=== PATIENT | female | born 1975 | race Caucasian/White ===

== ENCOUNTER 2018-01-10 19:56 | Emergency (ER) | payer OTHER ==
[~2018-01-10] VITALS: Ht 175.3 cm; Wt 80.0 kg
[~2018-01-10 19:56] MED LIST: DICL75TA PO; HYDR-3533 PO; OMEP20TA93 PO; SYNT175T PO
[2018-01-10 21:05] VITALS: BP 108/68; PULSE 83; RESP 16; TEMP 98.3; O2SAT 99
--- NOTE | 2018-01-10 21:49 | RADRPT ---
EXAM DATE/TIME: 01/10/2018 21:32 [place] COMPARISON: No previous studies available for comparison. INDICATIONS : Pain from pressure exerted downward on foot. MEDICAL HISTORY : None. SURGICAL HISTORY : None. ENCOUNTER: Initial ACUITY: 1 day PAIN SCORE: 5/10 LOCATION: Right foot, midline. FINDINGS: Three view examination of the right foot demonstrates no soft tissue swelling, dislocation, or fractu re. The tarsal bones appear intact. The interphalangeal and metatarsophalangeal joints are intact. The calcaneus is intact. Bony mineralization is normal. There is moderate hallux valgus. Mild degenerative changes are seen at the first metatarsophalangeal joint and sesamoids. CONCLUSION: Intact right foot. Hallux valgus with associated mild degenerative changes. Sterling Funk MD on January 10, 2018 at 21:46 Board Certified Radiologist. This report was verified electronically.
--- NOTE | 2018-01-10 22:55 | PD ---
HPI Chief Complaint: Injury Time Seen by Provider: 22:52 Travel History International Travel<30 days: No Contact w/Intl Traveler<30days: No Traveled to known affect area: No History of Present Illness HPI 42-year-old female here for evaluation of right foot pain. 6 hours ago she reports that she was pushing on a ryan with the right foot which felt a sharp pain in the right forefoot. Pain is worse when walking. Denies any other injuries and she has no other complaints. PFSH Past Medical History Cancer: Yes (THYROID) Diabetes: No Diminished Hearing: No GERD: Yes Hepatitis: No Hiatal Hernia: No Medical other: Yes (GERD, ARTHRITIS WRISTS) Migraines: Yes Thyroid Disease: Yes Tetanus Vaccination: < 5 Years ?: Not Tubal Ligation: Yes Past Surgical History Gynecologic Surgery: Yes (TUBAL LIG., UTERINE ABLATION) Hysterectomy: Yes Other Surgery: Yes (THYROIDECTOMY) Social History Alcohol Use: Yes (SOCIALLY) Tobacco Use: Yes (1/2 PPD) Substance Use: No Allergies-Medications (Allergen,Severity, Reaction): Coded Allergies: acebutolol (Unverified Allergy, Severe, BRONCHOSPASM, 01/10/18) amoxicillin (Unverified Allergy, Severe, HIVES, DYSPNEA, 01/10/18) atenolol (Unverified Allergy, Severe, BRONCHOSPASM, 01/10/18) betaxolol (Unverified Allergy, Severe, BRONCHOSPASM, 01/10/18) carvedilol (Unverified Allergy, Severe, BRONCHOSPASM, 01/10/18) cephalexin (Unverified Allergy, Severe, HIVES, DYSPNEA, 01/10/18) erythromycin base (Unverified Allergy, Severe, DYSPNEA, HIVES, 01/10/18) gabapentin (Unverified Allergy, Severe, BRONCHOSPASM, 01/10/18) labetalol (Unverified Allergy, Severe, BRONCHOSPASM, 01/10/18) metoprolol (Unverified Allergy, Severe, BRONCHOSPASM, 01/10/18) nebivolol (Unverified Allergy, Severe, BRONCHOSPASM, 01/10/18) penicillin G (Unverified Allergy, Severe, HIVES, DYSPNEA, 01/10/18) pindolol (Unverified Allergy, Severe, BRONCHOSPASM, 01/10/18) propranolol (Unverified Allergy, Severe, BRONCHOSPASM, 01/10/18) sotalol (Unverified Allergy, Severe, BRONCHOSPASM, 01/10/18) timolol (Unverified Allergy, Severe, BRONCHOSPASM, 01/10/18) Reported Meds & Prescriptions Reported Meds & Active Scripts Active Diclofenac Sodium DR (Diclofenac Sodium) 75 Mg Tabdr 75 Mg PO Q8HR PRN Lortab (Hydrocodone-Acetaminophen) 5-325 Mg Tab 1 Tab PO Q6H PRN Reported Omeprazole 20 Mg Tab 20 Mg PO DAILY Synthroid (Levothyroxine Sodium) 175 Mcg Tab 175 Mcg PO DAILY Review of Systems Musculoskeletal: Positive: Pain, No: Limited ROM Skin: Positive Other (Denies open wounds) Neurologic: No: Paresthesia Physical Exam Narrative GENERAL: Well-developed well-nourished female no acute distress SKIN: Warm and dry. No open wounds, no bruising or soft tissue swelling CARDIOVASCULAR: Regular rate and rhythm. No murmur appreciated. RESPIRATORY: No accessory muscle use. Clear to auscultation. Breath sounds equal bilaterally. MUSCULOSKELETAL: No obvious deformities. Tenderness to palpation of the right forefoot. The patient maintains full range of motion of the right foot, ankle. 2+ dorsalis pedis pulse. NEUROLOGICAL: Awake and alert. No obvious cranial nerve deficits. Motor grossly within normal limits. Normal speech. Data Data Last Documented VS Vital Signs Date Time Temp Pulse Resp B/P (MAP) Pulse Ox O2 Delivery O2 Flow Rate FiO2 01/10/18 21:05 98.3 83 16 108/68 (81) 99 Room Air Orders Orders Ice/Cold Pack (01/10/18 21:14) Foot, Complete ([id number]) (01/10/18 21:14) Ed Discharge Order (01/10/18 22:52) [facility] Medical Decision Making Medical Screen Exam Complete: Yes Emergency Medical Condition: Yes Medical Record Reviewed: Yes Differential Diagnosis Right foot strain, sprain, contusion, fracture Narrative Course X-ray imaging reveals CONCLUSION: Intact right foot. Hallux valgus with associated mild degenerative changes. The patient has no fracture. She appears to have a strain in her right foot. She is declining crutches. She is stable for discharge. Diagnosis Primary Impression: Right foot strain Additional Instructions: Ice area several times a day 15 minutes at a time. Rest. Follow-up with primary care physician as needed. Med/Other Pt SpecificInfo: No Change to Meds Disposition: 01 DISCHARGE HOME Condition: Stable Keith Cole Jan 10, 2018 22:55
== END 2018-01-10 23:42 | disposition home or self-care (01) ==
LOC: NEPD 19:56
DX: S96.911A Strain of unspecified muscle and tendon at ankle and foot level, right foot, initial encounter (principal); F17.200 Nicotine dependence, unspecified, uncomplicated; E07.9 Disorder of thyroid, unspecified; K21.9 Gastro-esophageal reflux disease without esophagitis; X50.9XXA Other and unspecified overexertion or strenuous movements or postures, initial encounter; Y93.89 Activity, other specified
CPT/HCPCS: 73630; 99283

== ENCOUNTER 2018-01-30 13:51 | Emergency (ER) | payer OTHER ==
[2018-01-30 14:22] VITALS: BP 144/90; PULSE 92; RESP 16; TEMP 98; O2SAT 99
[2018-01-30] MEDS ORDERED: MEDR4PAK PO (16:11)
--- NOTE | 2018-01-30 16:11 | PD ---
HPI Chief Complaint: Pain: Acute or Chronic Time Seen by Provider: 15:58 Travel History International Travel<30 days: No Contact w/Intl Traveler<30days: No Traveled to known affect area: No History of Present Illness HPI 42-year-old female presents to the emergency department with 2 complaints. Her first complaint is continued right foot pain. Denies injury. Says she was seen here on January 10 for the same complaint but says her pain is not getting better. Has not followed up with primary care or podiatry. Denies paresthesias , loss of sensation, decreased range of motion, decreased strength to the affected extremity. Worse with ambulation. Better at rest. Her second complaint is left shoulder pain since January 03 after she injured it changing a beer keg. She was seen at [facility] walk-in clinic and had an x-ray done. They told her she had a rotator cuff injury. She has not followed up with primary care or orthopedics. Pain is worse with movement. Better at rest. Rates pain 8/10. Has been taking ibuprofen and Tylenol for symptom management. Primary care provider is Dr. Stewart. Allergies as listed on the chart. History of hypothyroidism, migraine headaches, GERD. Has no other medical complaints. No other modifying factors or associated signs and symptoms. PFSH Past Medical History Cancer: Yes (THYROID) Diabetes: No Diminished Hearing: No GERD: Yes Hepatitis: No Hiatal Hernia: No Migraines: Yes Thyroid Disease: Yes Tubal Ligation: Yes Past Surgical History Gynecologic Surgery: Yes (TUBAL LIG., UTERINE ABLATION) Hysterectomy: Yes Other Surgery: Yes (THYROIDECTOMY) Social History Alcohol Use: Yes (SOCIALLY) Tobacco Use: Yes (1/2 PPD) Substance Use: No Allergies-Medications (Allergen,Severity, Reaction): Coded Allergies: acebutolol (Unverified Allergy, Severe, BRONCHOSPASM, 01/10/18) amoxicillin (Unverified Allergy, Severe, HIVES, DYSPNEA, 01/10/18) atenolol (Unverified Allergy, Severe, BRONCHOSPASM, 01/10/18) betaxolol (Unverified Allergy, Severe, BRONCHOSPASM, 01/10/18) carvedilol (Unverified Allergy, Severe, BRONCHOSPASM, 01/10/18) cephalexin (Unverified Allergy, Severe, HIVES, DYSPNEA, 01/10/18) erythromycin base (Unverified Allergy, Severe, DYSPNEA, HIVES, 01/10/18) gabapentin (Unverified Allergy, Severe, BRONCHOSPASM, 01/10/18) labetalol (Unverified Allergy, Severe, BRONCHOSPASM, 01/10/18) metoprolol (Unverified Allergy, Severe, BRONCHOSPASM, 01/10/18) nebivolol (Unverified Allergy, Severe, BRONCHOSPASM, 01/10/18) penicillin G (Unverified Allergy, Severe, HIVES, DYSPNEA, 01/10/18) pindolol (Unverified Allergy, Severe, BRONCHOSPASM, 01/10/18) propranolol (Unverified Allergy, Severe, BRONCHOSPASM, 01/10/18) sotalol (Unverified Allergy, Severe, BRONCHOSPASM, 01/10/18) timolol (Unverified Allergy, Severe, BRONCHOSPASM, 01/10/18) Reported Meds & Prescriptions Reported Meds & Active Scripts Active Medrol Dosepak (Methylprednisolone) 4 Mg Dspk 4 Mg PO DIRECTED Per Pharmacist direction Reported Omeprazole 20 Mg Tab 20 Mg PO DAILY Synthroid (Levothyroxine Sodium) 175 Mcg Tab 175 Mcg PO DAILY Review of Systems Except as stated in HPI: all other systems reviewed are Neg Physical Exam Narrative GENERAL: Well-nourished, well-developed female patient, in no acute distress SKIN: Warm and dry. HEAD: Atraumatic. Normocephalic. EYES: Pupils equal and round. No scleral icterus. No injection or drainage. ENT: Mucosa pink and moist. Airway patent. NECK: Supple. Trachea midline. CARDIOVASCULAR: Regular rate . RESPIRATORY: No accessory muscle use. GASTROINTESTINAL: Flat. MUSCULOSKELETAL: No obvious deformities. No clubbing. No cyanosis. No edema. Left shoulder with limited range of motion; with approximately 90 abduction; left shoulder with no obvious deformities; without erythema, edema, ecchymosis; tenderness on palpation to the lateral aspect. left upper extremity is supple and nontender with 2+ radial pulse and sensory intact and without erythema or edema; chief writer strength equal bilaterally.. 5/5 strength. Right upper extremity supple and non-tense. Right foot without erythema, edema, ecchymosis; tenderness on palpation to the first metatarsal joint. Right lower extremity is supple and nontender with 2+ pedal pulse and sensory intact and without erythema or edema. NEUROLOGICAL: Awake and alert. Oriented 3. No obvious cranial nerve deficits. Motor grossly within normal limits. Normal speech. PSYCHIATRIC: Appropriate mood and affect; insight and judgment normal. Data Data Last Documented VS Vital Signs Date Time Temp Pulse Resp B/P (MAP) Pulse Ox O2 Delivery O2 Flow Rate FiO2 01/30/18 14:22 98.0 92 16 144/90 (108) 99 Orders Orders Ed Discharge Order (01/30/18 16:11) MDM Medical Decision Making Medical Screen Exam Complete: Yes Emergency Medical Condition: Yes Medical Record Reviewed: Yes Differential Diagnosis Arthritis, gout, foot sprain, plantar fasciitis, foot pain, shoulder pain, rotator cuff tear, shoulder strain; less likely shoulder fracture or dislocation Narrative Course 42-year-old female with continued right foot pain and complaint of left shoulder pain. Patient was evaluated in urgent care on January 03 and had left shoulder x-rayed and was told rotator cuff injury, per the patient. She was evaluated here on January 10 and had right foot x-ray which concluded: Intact right foot. Hallux valgus with associated mild degenerative changes. Patient was given a copy of the x-ray report. Instructed patient to follow-up with orthopedics and podiatry. I offered the patient crutches for support and she declined. Medrol Dosepak prescribed for home. Instructed patient to follow up with primary care provider. Patient verbalizes understanding and agreement with treatment plan. Patient is medically cleared and stable for discharge. Discussed reasons to return to the emergency department. Patient agrees with treatment plan. The patients vital signs are stable and the patient is stable for outpatient follow-up and treatment. Patient discharged home, stable and in no acute distress. Diagnosis Primary Impression: Left shoulder pain Qualified Codes: M25.512 - Pain in left shoulder Additional Impression: Right foot pain Referrals: [facility] Orthopaedic Surgeon Portable Machine Cutter Primary Care Physician Patient Instructions: General Instructions, Shoulder Pain (ED) Additional Instructions: Tylenol or ibuprofen as directed and as needed for pain Avoid the use of flat shoes and barefoot walking Use heel shoe inserts or arch supports and/or heel cups as needed Decrease physical activity that causes aggravation of pain Avoid aggravating activity; increase activity as tolerated Cane as needed for support with walking Follow-up with podiatry Follow-up with orthopedics Follow-up with primary care Return to the emergency department immediately with worsening of symptoms Med/Other Pt SpecificInfo: Prescription(s) given Scripts Methylprednisolone Dosepak (Medrol Dosepak) 4 Mg Dspk 4 MG PO DIRECTED, #1 DSPK 0 Refills Per Pharmacist direction Prov: Lucy Bertrand 01/30/18 Disposition: 01 DISCHARGE HOME Condition: Stable Lucy Bertrand Jan 30, 2018 16:11
== END 2018-01-30 16:16 | disposition home or self-care (01) ==
LOC: NEPK 13:51
DX: M25.512 Pain in left shoulder (principal); M79.671 Pain in right foot; E03.9 Hypothyroidism, unspecified; K21.9 Gastro-esophageal reflux disease without esophagitis; F17.200 Nicotine dependence, unspecified, uncomplicated; Z85.850 Personal history of malignant neoplasm of thyroid
CPT/HCPCS: 99283

== ENCOUNTER 2018-03-25 17:45 | Emergency (ER) | payer SELFPAY ==
[~2018-03-25] VITALS: Ht 175.3 cm; Wt 85.0 kg
[~2018-03-25 17:45] MED LIST changes: -DICL75TA PO; -HYDR-3533 PO; +MEDR4PAK PO
[2018-03-25 18:42] VITALS: BP 145/82; PULSE 77; RESP 18; TEMP 98.4; O2SAT 100
--- NOTE | 2018-03-25 19:14 | PD ---
HPI Chief Complaint: abdominal pain Time Seen by Provider: 18:58 Travel History International Travel<30 days: No Contact w/Intl Traveler<30days: No Traveled to known affect area: No History of Present Illness HPI 42yo F with PMH of chronic back pain, migraine headaches, endometriosis s/p hysterectomy, pancreatitis presents to the ED with c/o right upper abdominal pain for 4 hours. Said pain is radiating to the right scapula. Leaning on left side seemed to help. Associated with nausea. Pain is achy and constant. Moderate severity. Denies any fever, chest pain, sob, vomiting, dysuria, hematuria, vaginal bleeding, discharge, focal weakness or numbness. Pt just started pain management and had lower back injection of steroids today. Denies any trauma. PFSH Past Medical History Cancer: Yes (THYROID) Diabetes: No Diminished Hearing: No GERD: Yes Hepatitis: No Hiatal Hernia: No Migraines: Yes Thyroid Disease: Yes Tubal Ligation: Yes Past Surgical History Gynecologic Surgery: Yes (TUBAL LIG., UTERINE ABLATION) Hysterectomy: Yes Other Surgery: Yes (THYROIDECTOMY) Social History Alcohol Use: Yes (SOCIALLY) Tobacco Use: Yes (1/2 PPD) Substance Use: No Allergies-Medications (Allergen,Severity, Reaction): Coded Allergies: acebutolol (Unverified Allergy, Severe, BRONCHOSPASM, 03/25/18) amoxicillin (Unverified Allergy, Severe, HIVES, DYSPNEA, 03/25/18) atenolol (Unverified Allergy, Severe, BRONCHOSPASM, 03/25/18) betaxolol (Unverified Allergy, Severe, BRONCHOSPASM, 03/25/18) carvedilol (Unverified Allergy, Severe, BRONCHOSPASM, 03/25/18) cephalexin (Unverified Allergy, Severe, HIVES, DYSPNEA, 03/25/18) erythromycin base (Unverified Allergy, Severe, DYSPNEA, HIVES, 03/25/18) gabapentin (Unverified Allergy, Severe, BRONCHOSPASM, 03/25/18) labetalol (Unverified Allergy, Severe, BRONCHOSPASM, 03/25/18) metoprolol (Unverified Allergy, Severe, BRONCHOSPASM, 03/25/18) nebivolol (Unverified Allergy, Severe, BRONCHOSPASM, 03/25/18) penicillin G (Unverified Allergy, Severe, HIVES, DYSPNEA, 03/25/18) pindolol (Unverified Allergy, Severe, BRONCHOSPASM, 03/25/18) propranolol (Unverified Allergy, Severe, BRONCHOSPASM, 03/25/18) sotalol (Unverified Allergy, Severe, BRONCHOSPASM, 03/25/18) timolol (Unverified Allergy, Severe, BRONCHOSPASM, 03/25/18) Reported Meds & Prescriptions Reported Meds & Active Scripts Active Medrol Dosepak (Methylprednisolone) 4 Mg Dspk 4 Mg PO DIRECTED Per Pharmacist direction Reported Omeprazole 20 Mg Tab 20 Mg PO DAILY Synthroid (Levothyroxine Sodium) 175 Mcg Tab 175 Mcg PO DAILY Review of Systems Except as stated in HPI: all other systems reviewed are Neg Physical Exam Narrative GENERAL: 42yo F in mild distress. SKIN: Focused skin assessment warm/dry. HEAD: Atraumatic. Normocephalic. EYES: Pupils equal and round. No scleral icterus. No injection or drainage. ENT: No nasal bleeding or discharge. Mucous membranes pink and moist. NECK: Trachea midline. No JVD. CARDIOVASCULAR: Regular rate and rhythm. No murmur appreciated. RESPIRATORY: No accessory muscle use. Clear to auscultation. Breath sounds equal bilaterally. GASTROINTESTINAL: Abdomen soft, +TTP epigastric and RUQ. No rebound tenderness or guarding. Back: +Bandaid in lower back with no ttp or swelling or bleeding. MUSCULOSKELETAL: No obvious deformities. No clubbing. No cyanosis. No edema. NEUROLOGICAL: Awake and alert. No obvious cranial nerve deficits. Motor grossly within normal limits. Normal speech. PSYCHIATRIC: Appropriate mood and affect; insight and judgment normal. Data Data Last Documented VS Vital Signs Date Time Temp Pulse Resp B/P (MAP) Pulse Ox O2 Delivery O2 Flow Rate FiO2 03/25/18 18:42 98.4 77 18 145/82 (103) 100 Orders Orders Complete Blood Count With Diff (03/25/18 19:07) Comprehensive Metabolic Panel (03/25/18 19:07) Lipase (03/25/18 19:07) Urinalysis - C+S If Indicated (03/25/18 19:07) Us Abdomen Gallbladder (03/25/18 ) Ketorolac Inj (Toradol Inj) (03/25/18 19:15) Ondansetron Odt (Zofran Odt) (03/25/18 19:15) Morphine Inj (Morphine Inj) (03/25/18 20:45) Acetaminophen (Tylenol) (03/25/18 21:15) Labs Laboratory Tests Test 03/25/18 19:10 White Blood Count 8.9 TH/MM3 Red Blood Count 4.54 MIL/MM3 Hemoglobin 13.7 GM/DL Hematocrit 41.0 % Mean Corpuscular Volume 90.2 FL Mean Corpuscular Hemoglobin 30.3 PG Mean Corpuscular Hemoglobin Concent 33.5 % Red Cell Distribution Width 13.0 % Platelet Count 247 TH/MM3 Mean Platelet Volume 10.2 FL Neutrophils (%) (Auto) 85.9 % Lymphocytes (%) (Auto) 10.2 % Monocytes (%) (Auto) 3.0 % Eosinophils (%) (Auto) 0.5 % Basophils (%) (Auto) 0.4 % Neutrophils # (Auto) 7.7 TH/MM3 Lymphocytes # (Auto) 0.9 TH/MM3 Monocytes # (Auto) 0.3 TH/MM3 Eosinophils # (Auto) 0.0 TH/MM3 Basophils # (Auto) 0.0 TH/MM3 CBC Comment DIFF FINAL Differential Comment Urine Color YELLOW Urine Turbidity CLEAR Urine pH 6.0 Urine Specific [place] 1.022 Urine Protein NEG mg/dL Urine Glucose (UA) NEG mg/dL Urine Ketones NEG mg/dL Urine Occult Blood NEG Urine Nitrite NEG Urine Bilirubin NEG Urine Urobilinogen LESS THAN 2.0 MG/DL Urine Leukocyte Esterase NEG Urine RBC LESS THAN 1 /hpf Urine Squamous Epithelial Cells 2 /hpf Urine Mucus FEW /lpf Microscopic Urinalysis Comment CULT NOT INDICATED Blood Urea Nitrogen 12 MG/DL Creatinine 0.76 MG/DL Random Glucose 86 MG/DL Total Protein 7.3 GM/DL Albumin 4.0 GM/DL Calcium Level 8.8 MG/DL Alkaline Phosphatase 88 U/L Aspartate Amino Transf (AST/SGOT) 20 U/L Alanine Aminotransferase (ALT/SGPT) 30 U/L Total Bilirubin 0.1 MG/DL Sodium Level 140 MEQ/L Potassium Level 4.2 MEQ/L Chloride Level 107 MEQ/L Carbon Dioxide Level 26.3 MEQ/L Anion Gap 7 MEQ/L Estimat Glomerular Filtration Rate 84 ML/MIN Lipase 205 U/L [facility] Medical Decision Making Medical Screen Exam Complete: Yes Emergency Medical Condition: Yes Differential Diagnosis Acute cholecystitis vs. cholelithiasis vs. pancreatitis vs. musculoskeletal pain Narrative Course 42yo F right upper abdominal pain radiating to right scapula. Labs reviewed, no leukocytosis. H/H normal. Normal liver enzymes. Normal lipase. UA negative. Pt had hysterectomy so not ordered. US gallbladder showed no evidence of gallstones or biliary tract obstruction. Increased echogenicity of the liver suggestive fo fatty infiltration or hepatocellular disease. Pt given pain and nausea medication and it has improved. She is well appearing. Return precautions given. Diagnosis Primary Impression: Abdominal pain Qualified Codes: R10.11 - Right upper quadrant pain Patient Instructions: General Instructions Departure Forms: Tests/Procedures Additional Instructions: Please follow up with your primary care physician regarding the increased echogenicity of liver seen in US which could be suggestive of fatty infiltration or hepatocellular disease. Please return to the ED if symptoms worsen. Med/Other Pt SpecificInfo: Prescription(s) given Scripts Acetaminophen (Tylenol) 325 Mg Tab 650 MG PO Q6H Y for PAIN SCALE 1 TO 4, #20 TAB 0 Refills Prov: Beata Chaudhry DO 03/25/18 Disposition: 01 DISCHARGE HOME Condition: Stable Beata Chaudhry DO March 25, 2018 19:14
[2018-03-25] MEDS ORDERED: KETOROLAC TROMETHAMINE 30 MG/ML (IVP) VIAL IV PUSH ONE (19:15)
[2018-03-25] MEDS ORDERED: ONDANSETRON ODT 4 MG TAB PO ONE (19:15)
[2018-03-25 19:47] LABS: AUTOMATED NEUTROPHIL # 7.7 TH/MM3 (1.8-7.7); BASOPHIL % 0.4 % (0.0-2.0); EOSINOPHIL % 0.5 % (0.0-4.0); HEMOGLOBIN 13.7 GM/DL (11.6-15.3); LYMPH % 10.2 % (9.0-44.0); LYMPHOCYTE # 0.9 TH/MM3 (1.0-4.8); MEAN CELL VOLUME 90.2 FL (80.0-100.0); MEAN CORPUSCULAR HEMOGLOBIN 30.3 PG (27.0-34.0); MEAN CORPUSCULAR HGB CONC 33.5 % (32.0-36.0); MEAN PLATELET VOLUME 10.2 FL (7.0-11.0); MONOCYTE # 0.3 TH/MM3 (0-0.9); NEUT % 85.9 % (16.0-70.0); PLATELET COUNT 247 TH/MM3 (150-450); RED BLOOD COUNT 4.54 MIL/MM3 (4.00-5.30); WHITE BLOOD COUNT 8.9 TH/MM3 (4.0-11.0)
[2018-03-25 20:03] LABS: AST (GOT) 20 U/L (15-37); BICARBONATE 26.3 MEQ/L (21.0-32.0); BLOOD UREA NITROGEN 12 MG/DL (7-18); CALCIUM 8.8 MG/DL (8.5-10.1); CHLORIDE 107 MEQ/L (98-107); CREATININE 0.76 MG/DL (0.50-1.00); GLOMERULAR FILTRATION RATE 84 ML/MIN (>89); GLUCOSE,RANDOM 86 MG/DL (74-106); SODIUM (NA) 140 MEQ/L (136-145)
[2018-03-25 20:06] LABS: ALKALINE PHOSPHATASE 88 U/L (45-117); ALT (GPT) 30 U/L (10-53); TOTAL BILIRUBIN ADULT 0.1 MG/DL (0.2-1.0); TOTAL PROTEIN 7.3 GM/DL (6.4-8.2)
[2018-03-25 20:09] LABS: BILIRUBIN, URINE NEG (NEG); BLOOD, URINE NEG (NEG); GLUCOSE,URINE NEG (NEG); KETONE, URINE NEG (NEG); MUCUS URINE FEW /lpf (OCC); NITRITE,URINE NEG (NEG); SQUAMOUS EPITHELIAL CELL URINE 2 /hpf (0-5); URINE COLOR YELLOW (YELLW/STRAW); URINE LEUKOCYTE ESTERASE NEG (NEG)
[2018-03-25] MEDS ORDERED: MORPHINE SULFATE 4 MG/ML INJ IV PUSH ONE (20:45)
--- NOTE | 2018-03-25 21:08 | RADRPT ---
EXAM DATE: 03/25/2018 9:01 PM EDT AGE/SEX: 42 years / Female INDICATIONS: RUQ pain. CLINICAL DATA: This is the patient's initial encounter. Patient reports that signs and/or symptoms h ave been present for 1 day and indicates a pain score of 10/10. MEDICAL/SURGICAL HISTORY: Gastroesophageal reflux disease. Thyroid cancer. UTI. Arthritis. Tubal l igation. Hysterectomy. Thyroidectomy. COMPARISON: No prior [facility] exams available for comparison MEASUREMENTS (cm x cm x cm): Liver:__ 16.1 cm length Common Bile Duct:__ 3mm FINDINGS: Liver: Coarse echotexture suggesting fatty change or diffuse hepatocellular process. No evidence of ascites. Portal Vein: Hepatopedal flow seen in portal vein. Common Duct: No intraluminal mass or stone visualized. Gallbladder: Demonstrates no wall thickening or pericholecystic fluid. No stones visualized. Pancreas: Not well visualized. Right Kidney: No mass or hydronephrosis Other: None. CONCLUSION: 1. No evidence of gallstones or biliary tract obstruction. 2. Increased echogenicity of the liver suggestive of fatty infiltration or hepatocellular disease. Electronically signed by: Austen Narvaez MD 03/25/2018 9:07 PM EDT
[2018-03-25] MEDS ORDERED: ACETAMINOPHEN 325 MG TAB PO ONE (21:15)
[2018-03-25] MEDS ORDERED: TYLE325T PO (22:02)
[2018-03-25 22:24] VITALS: BP 130/78
== END 2018-03-25 22:26 | disposition home or self-care (01) ==
LOC: NEPD 17:45
DX: R10.11 Right upper quadrant pain (principal); E07.9 Disorder of thyroid, unspecified; K21.9 Gastro-esophageal reflux disease without esophagitis; F17.200 Nicotine dependence, unspecified, uncomplicated
CPT/HCPCS: 76705; 80053; 81001; 83690; 85025; 96374; 96375; 99284; J1885; J2270